=== PATIENT | female | born 1955 | race Caucasian/White ===

== ENCOUNTER 2017-02-11 11:28 | Emergency (ER) | payer BC ==
[~2017-02-11] VITALS: Ht 167.6 cm; Wt 114.1 kg
[2017-02-11 11:37] VITALS: TEMP 36.6; Ht 167.6 cm; Wt 114.1 kg
[2017-02-11] MEDS ORDERED: CLR10 PO (11:47)
[2017-02-11] MEDS ORDERED: MULT-506 PO (11:47)
[2017-02-11] MEDS ORDERED: HYDROCODONE/ACETAMOPHEN 5/325MG TAB PO STA (12:06)
[2017-02-11] MEDS ORDERED: MoRPHine SULFATE 10 MG/ML CARP/VIAL IM STA (12:08)
--- NOTE | 2017-02-11 13:13 | DIAGNOSTIC IMAGING REPORT ---
LEFT SHOULDER MIN 2 VIEWS ROUTINE CLINICAL HISTORY: fall, posse upper arm fx trauma COMPARISON: None. DISCUSSION: Fracture humeral head and neck. Slight impaction of the humeral shaft. No evidence of dislocation. The remaining osseous structures are unremarkable. IMPRESSION: Fracture humeral head and neck with slight degree of impaction. No evidence for dislocation. The above report was generated using voice recognition software. It may contain grammatical, syntax or spelling errors. Electronically signed by: Charles Spence M.D. 02/11/2017 1:11 PM Dictated Date/Time: 02/11/2017 1:11 PM
--- NOTE | 2017-02-11 13:13 | DIAGNOSTIC IMAGING REPORT ---
LEFT HUMERUS MIN 2 VIEWS ROUTINE CLINICAL HISTORY: fall, posse upper arm fx COMPARISON: None. DISCUSSION: Fracture humeral head and neck previously described. The remainder of the humerus is unremarkable. There is no evidence for soft tissue swelling. IMPRESSION: Fracture or humeral head and neck. The remainder of the humerus is negative. The above report was generated using voice recognition software. It may contain grammatical, syntax or spelling errors. Electronically signed by: Charles Spence M.D. 02/11/2017 1:12 PM Dictated Date/Time: 02/11/2017 1:12 PM
--- NOTE | 2017-02-11 13:14 | DIAGNOSTIC IMAGING REPORT ---
LEFT ELBOW MIN 3 VIEWS ROUTINE CLINICAL HISTORY: fall, posse upper arm fx trauma COMPARISON: None. DISCUSSION: The bones and joint spaces appear intact. There is no evidence of fracture, dislocation or bony disease. Similar, mild exam due to ability to patient position due to discomfort IMPRESSION: Somewhat limited exam as above. No significant bony abnormality The above report was generated using voice recognition software. It may contain grammatical, syntax or spelling errors. Electronically signed by: Charles Spence M.D. 02/11/2017 1:13 PM Dictated Date/Time: 02/11/2017 1:12 PM
--- NOTE | 2017-02-11 13:29 | EMERGENCY ROOM VISIT NOTE ---
ED Visit Note First contact with patient: 11:55 CHIEF COMPLAINT: Shoulder pain HISTORY OF PRESENT ILLNESS: This 61-year-old female patient presents to the emergency department complaining of pain in the left shoulder and down the arm after a fall today. Patient states there was a snake in her kitchen, she jumped up on a chair and slipped falling back off of the chair falling onto her left shoulder. There is significant limitation of motion of the arm because of the pain. The pain is severe, constant and increases with motion of the hand and arm. The patient states the pain is aching and throbbing and 9/10. The patient has taken no medication for relief of the pain prior to arrival. No previous significant previous shoulder disease or injury. No numbness or tingling. No neck and no back pain. No chest pain or shortness of breath. No abdominal pain or nausea/vomiting. No cough. She states she did not hit her head or have loss of consciousness from the fall. No other injuries from the fall. REVIEW OF SYSTEMS: A 6 system review of systems was performed with positives and pertinent negatives in the HPI. ALLERGIES: See chart MEDICATIONS: See chart PMH: See chart SOCIAL HISTORY: See chart PHYSICAL EXAM: Vital Signs: Reviewed nurse's notes, vital signs stable. GENERAL : Pleasant and cooperative, in no acute distress, but appears to be in pain, well-developed, well-nourished. MUSCULOSKELETAL: There is no deformity in the contour of the left shoulder and there are no lucio deformities noted. There is no sulcus sign. There is tenderness over the mid and proximal left upper arm. The patient's range of motion is severely limited due to pain. There is no clavicle tenderness. No tenderness of the elbow, wrist, or hand. Weather Strip Installer strength 5 /5. Radial pulse 2+. NECK: No tenderness to palpation over the cervical spine. Full range of motion without pain. HEART: Regular rate and rhythm without murmurs gallops or rubs. LUNGS: Clear to auscultation bilaterally without wheezes, rales or rhonchi. No accessory muscle use. No retractions. NEURO: The patient is alert and oriented to person, place, and time. Normal sensation to light and sharp touch. Capillary refill less than 2 seconds. EMERGENCY DEPARTMENT COURSE: I examined the patient. An X-ray of the left elbow , humerus, and shoulder was reviewed by myself and radiologist and shows a comminuted fracture of the proximal humerus extending into the humeral head, no dislocation. No other fractures noted. Patient was given IM morphine and Percocet for pain with good improvement. Patient was placed in a sling. Patient was instructed on follow up with orthopedics, she verbalized understanding. She was discharged home in stable condition and ambulatory. Problem List Medical Problems: (1) Sciatica Status: Chronic Current/Historical Medications Scheduled Loratadine (Claritin), 10 MG PO DAILY Multivitamin (Multivitamin), 1 TAB PO DAILY Scheduled PRN Oxycodone Ir (Roxicodone Ir), 1-2 TAB PO Q6H PRN for Pain Allergies Coded Allergies: Lactose (Verified Adverse Reaction, Intermediate, GI UPSET, 02/11/17) Vital Signs Date Time Temp Pulse Resp B/P (MAP) Pulse Ox O2 Delivery O2 Flow Rate FiO2 02/11/17 14:16 65 18 158/102 98 Room Air 02/11/17 11:37 36.6 77 18 149/87 95 Room Air Medications Administered Medications (Trade) Dose Ordered Sig/Tyler Route Start Time Stop Time Status Last Admin Dose Admin Morphine Sulfate (MoRPHine SULFATE INJ) 8 mg NOW STAT IM 02/11/17 12:08 02/11/17 12:10 DC 02/11/17 12:20 8 MG Oxycodone/ Acetaminophen (Percocet 5-325mg Tab) 1 tab Q4H PRN PO 02/11/17 14:00 02/11/17 15:24 DC 02/11/17 14:15 1 TAB Departure Information Impression Primary Impression: Closed fracture of left proximal humerus Dispostion Home / Self-Care Condition GOOD Prescriptions Oxycodone Ir (Roxicodone Ir) 5 Mg Tab 1-2 TAB PO Q6H Y for Pain for 3 Days, #24 TAB For Initial Treatment Prov: Asia Estrella CRNP 02/11/17 Referrals No Doctor, Assigned (PCP) [facility] Patient Instructions Humerus Fx, My [facility] [employer] Additional Instructions Keep the arm in the sling at all times. You may remove for bathing only. Apply ice to the shoulder intermittently and frequently over the next 24-48 hours for swelling and pain. Tylenol 1,000mg every 8 hours as needed for pain. Oxycodone 1-2 tablets every 6 hours as needed for severe pain. Do not drive, drink alcohol, or operate machinery while you're taking this medication, as it may make you drowsy. Follow-up with orthopedics within the next week to further address your broken arm. Please return to the ER sooner with any worsening symptoms, including severe swelling or worsening pain of the arm, complete loss of feeling or discoloration of the arm, or any other concerns. Work Instructions Return To Work: after follow-up (orthopedic surgery) Additional Work Instructions: No work until cleared by orthopedics Problem Qualifiers Primary Impression: Closed fracture of left proximal humerus Encounter type: initial encounter Fracture morphology: other fracture Fracture alignment: nondisplaced Qualified Codes: S42.295A - Other nondisplaced fracture of upper end of left humerus, initial encounter for closed fracture
[2017-02-11] MEDS ORDERED: OXYCODONE/ACETAMINOPHEN 5-325 TAB PO PRN (14:00)
[2017-02-11 14:16] VITALS: BP 158/102; PULSE 65; O2SAT 98
[2017-02-11] MEDS ORDERED: OXYC1TAB3 PO ×2 (14:40→14:54)
== END 2017-02-11 14:45 | disposition home or self-care (01) ==
LOC: C.EDB 11:29 → C.EDD 14:45
DX: S42.295A Other nondisplaced fracture of upper end of left humerus, initial encounter for closed fracture (principal); W07.XXXA Fall from chair, initial encounter; Y93.89 Activity, other specified; Y99.8 Other external cause status

== ENCOUNTER → 2017-05-25 | Day surgery (SDC) | payer BC ==
[2017-05-11 08:18] VITALS: Ht 166.4 cm; Wt 109.1 kg
[~2017-05-25] VITALS: Ht 166.4 cm; Wt 109.1 kg
[~2017-05-25] MED LIST: ACET325T96 PO; ATROPINE SULFATE 0.1 MG/ML 5ML SYR IV PRN; BUPIVACAINE/EPINEPHRINE 0.5% MPF 1:200,000 30 ML VIAL ONE; CEFAZOLIN 2000MG IV PUSH 10 ML IV SCH; CLR10 PO; DEXAMETHASONE SOD INJ 4 MG/ML VIAL ONE; EpHEDrine SULFATE INJ 50 MG/ML AMP IV PRN; FENTANYL CITRATE INJ 50 MCG/1 ML 2 ML VIAL IV PRN; FENTANYL CITRATE INJ 50 MCG/1 ML 2 ML VIAL ONE; HYDR-5688 PO; LACTATED RINGER'S 1000ML 1,000 ML IV SCH; LIDOCAINE HCL 2% 2 ML VIAL (20MG/ML) ONE; LIDOCAINE HCL 2% LOCAL 20 ML VIAL ONE; MIDAZOLAM HCL 1 MG/ML 2ML VIAL ONE; MULT-506 PO; ONDANSETRON INJ 2 MG/ML 2 ML VIAL IV PRN; ONDANSETRON INJ 2 MG/ML 2 ML VIAL ONE; OXYCODONE/ACETAMINOPHEN 5-325 TAB PO PRN; PROPOFOL IV EMULSION 10 MG/ML 20 ML VIAL IV ONE; SODIUM CHLORIDE 0.9% 1000ML 1,000 ML IV SCH
--- NOTE | 2017-05-25 06:59 | History & Physical Bridge - SC ---
H&P Re-Evaluation Bridge Note: I have examined the patient, reviewed the History & Physical and in the interval since the performance of the History & Physical I have noted the following changes of clinical significance: No changes noted
[2017-05-25 07:46] VITALS: TEMP 36.7
--- NOTE | 2017-05-25 07:47 | [facility] Post Operative Brief Note ---
Immediate Operative Summary Operative Date May 25, 2017. Pre-Operative Diagnosis Left Ankle Cyst Post-Operative Diagnosis same as preop Procedure(s) Performed Left Ankle Cyst Excision Surgeon Dr. Sheldon Level Designer Surgeon(s) NITA Archuleta Estimated Blood Loss TRACE Findings cyst left ankle Specimens none per surgeon Complication(s) None Disposition Recovery Room / PACU
--- NOTE | 2017-05-25 07:49 | Discharge Instructions-SurgCtr ---
Discharge Instructions Date of Service May 25, 2017. Visit Reason for Visit: Left Ankle Cyst Discharge Discharge Diagnosis / Problem: SAME ABOVE Discharge Goals Goal(s): Decrease discomfort, Improve function Activity Recommendations Activity Limitations: as noted below Lifting Limitations: gradually increase as tolerated Exercise/Sports Limitations: until after follow-up appointment Shower/Bathe: keep incision dry Weightbearing Status: Right weightbearing (as tolerated) Anesthesia . Post Anesthesia Instructions: If you have had General Anesthesia or IV Sedation: * Do not drive today. * Resume driving when surgeon permits. * Do not make important decisions or sign legal documents today. * Call surgeon for: 1. Temperature elevations greater than 101 degrees F. 2. Uncontrollable pain. 3. Excessive bleeding. 4. Persistent nausea and vomiting. 5. Medication intolerance (nausea, vomiting or rash). * For nausea and vomiting use only clear liquids such as: tea, soda, bouillon until nausea subsides, then gradually increase diet as tolerated. * If you have any concerns or questions, call your surgeon's office. If physician is unavailable and it is an emergency, call 911 or go to the nearest emergency room. . Instructions / Follow-Up Instructions / Follow-Up MEDICATIONS: * Resume previous medications unless instructed otherwise by your surgeon. * Always take pain medication on a full stomach or with food to avoid upset stomach. * Do not drink alcohol or drive while taking narcotics. * Ibuprofen or Tylenol may be taken if narcotic not needed. SPECIAL CARE INSTRUCTIONS: __ None _X_ Keep extremity elevated and iced x 48 hours; apply ice 20-30 minutes 8-10 times/day. May remove at night. __ Crutches __ May discard when able _X_ Brace/Post-op shoe __ 24 hrs/day _X_ Remove at night _X_ Dressing _X_ Maintain until seen in office, may shower with plastic over site __ Remove dressings in 24-48 hours and then may shower __ Cover incisions with band-aids after showering __ Do not remove steri-strips Call physician if chills or temperature rises above 102 degrees or pain unrelieved by prescribed pain medications. Office [phone] Diet Recommendations Home Diet: no limitations Procedures Procedures Performed: Left Ankle Cyst Excision Pending Studies Studies pending at discharge: no Medical Emergencies . Who to Call and When: Medical Emergencies: If at any time you feel your situation is an emergency, please call 911 immediately. . Non-Emergent Contact Non-Emergency issues call your: Primary Care Provider . . "Provider Documentation" section prepared by Robert Garcia. .
--- NOTE | 2017-05-25 07:59 | OPERATIVE REPORT ---
DATE OF OPERATION: 05/25/2017 PREOPERATIVE DIAGNOSIS: Sebaceous cyst or synovial cyst, left ankle. DISCHARGE DIAGNOSIS: Same. PROCEDURE: Removal of the cyst, left ankle lateral aspect. COMPLICATIONS: Zero. BLOOD LOSS: Less than 5 mL. SURGEON: John Sheldon DO. CHUTE LOADER: Robert Garcia PA-C. ANESTHETIC: Monitored sedation. DESCRIPTION OF PROCEDURE: The patient was taken to the surgical suite here at the surgical center, scrubbed, prepped and draped sterile. We made a skin incision right directly over the cyst dissecting the soft tissue. I was able to remove the cyst in toto along with some synovial material as well. We irrigated and closed in layers with 2-0 Vicryl suture, 3-0 nylon. Sterile dressings and she was returned to recovery room satisfactory and stable. Prior to closure, we did anesthetize the skin with 2% Marcaine. I attest to the content of the Intraoperative Record and any orders documented therein. Any exception s are noted below.
[2017-05-25 08:16] VITALS: BP 132/84; PULSE 84; O2SAT 96
--- NOTE | 2017-05-25 08:25 | Anesthesia Progress Nt - [facility] ---
Anesthesia Post Op Note Date & Time May 25, 2017 at 08:24 Vital Signs Pain Intensity: 0 Vital Signs Past 12 Hours Date Time Temp Pulse Resp B/P (MAP) Pulse Ox O2 Delivery O2 Flow Rate FiO2 05/25/17 08:16 84 16 132/84 (100) 96 Room Air 05/25/17 07:46 36.7 91 16 110/72 (85) 93 Room Air 05/25/17 06:24 36.7 74 20 153/90 (111) 95 Room Air Notes Mental Status: alert / awake / arousable, participated in evaluation Pt Amnestic to Procedure: Yes Nausea / Vomiting: adequately controlled Pain: adequately controlled Airway Patency, RR, SpO2: stable & adequate BP & HR: stable & adequate Hydration State: stable & adequate Anesthetic Complications: no major complications apparent
--- NOTE | 2017-06-09 09:43 | EDITING REQUIRED CODING QUERY ---
CODING QUERY To promote full compliance with coding requirements relating to patient care, provider participation is requested in all cases of doctor of optometry uncertainty. Please assist us with the question(s) below: Coding Question(s): Please clarify (in cm) the size of the cyst removed from the lateral aspect of the left ankle. Physician's Response(s): Thank you Allison Bailey Principal Diagnosis: "_that condition established after study, to be chiefly responsible for occasioning the admission of the patient to the hospital for care." Co-Existing Principal Diagnosis: "_when two or more diagnoses equally meet the criteria for principal diagnosis as determined by the circumstances of admission, diagnostic work up, and/or therapy provided, and the Alphabetic Index, Tabular List, or another coding guideline does not provide sequencing direction, any one of the diagnoses may be sequenced first." "When the physician has documented what appears to be a current diagnosis in the body of the record, but has not included the diagnosis in the final diagnostic statement, the physician should be asked whether the diagnosis should be added." ([facility] 2 QTR90. p3-4)
--- NOTE | 2017-06-15 18:06 | OPERATIVE REPORT ---
DATE OF OPERATION: 05/25/2017 ADDENDUM I was asked to provide the approximate size of the cyst removed from ankle. Response. Approximately 2 x 2 cm. I attest to the content of the Intraoperative Record and any orders documented therein. Any exception s are noted below.
--- NOTE | 2017-06-16 07:52 | EDITING REQUIRED CODING QUERY ---
CODING QUERY To promote full compliance with coding requirements relating to patient care, provider participation is requested in all cases of hims coder uncertainty. Please assist us with the question(s) below: Coding Question(s): Both sebaceous cyst and synovial cyst are mentioned in the op report. Could you please clarify the type of cyst that was removed? __ Sebaceous cyst __ Synovial cyst __ Other - Please specify Physician's Response(s): Thank you Allison Bailey Principal Diagnosis: "_that condition established after study, to be chiefly responsible for occasioning the admission of the patient to the hospital for care." Co-Existing Principal Diagnosis: "_when two or more diagnoses equally meet the criteria for principal diagnosis as determined by the circumstances of admission, diagnostic work up, and/or therapy provided, and the Alphabetic Index, Tabular List, or another coding guideline does not provide sequencing direction, any one of the diagnoses may be sequenced first." "When the physician has documented what appears to be a current diagnosis in the body of the record, but has not included the diagnosis in the final diagnostic statement, the physician should be asked whether the diagnosis should be added." ([facility] 2 QTR90. p3-4)
--- NOTE | 2017-07-08 09:10 | HISTORY & PHYSICAL EXAMINATION ---
DATE OF ADMISSION: 05/25/2017 ____ date created was 06/16/2017 ____. Sebaceous cyst was the cyst that was removed during surgical intervention.
== END | disposition home or self-care (01) ==
LOC: X.SURG 06:08
PROVIDERS: ATTEND Orthopaedic Surgery Orthopaedic Surgery of the Spine
DX: L72.3 Sebaceous cyst (principal); E66.9 Obesity, unspecified; Z95.2 Presence of prosthetic heart valve; Z98.890 Other specified postprocedural states; M19.90 Unspecified osteoarthritis, unspecified site